=== PATIENT | male | born 1960 ===

== ENCOUNTER 2024-10-14 06:29 | Day surgery (SDC) | payer OTHER, SELFPAY ==
[2024-10-14] VITALS (20 sets, daily range): BP systolic 130–168; BP diastolic 65–100; BMI 39.0
[2024-10-14 07:13] LABS: Hematocrit 41.5 % (39.0-52.0); Hemoglobin 14.1 g/dL (13.0-18.0); Mean Corpuscular Hgb 29.4 pg (27.0-31.0); Mean Corpuscular Volume 86.5 fL (80.0-94.0); Mean Platelet Volume 9.7 fL (7.4-10.4); Platelet Count 300 10^3/uL (130-400); Red Cell Dist. Width 13.2 % (11.5-14.5); White Blood Cell Count 9.7 10^3/uL (4.8-10.8)
[2024-10-14 07:15] LABS: Glucose - Point of Care 242 mg/dl (70-99)
[2024-10-14] MEDS: LOW STRENGTH ASPIRIN 81 MG PO (07:21)
[2024-10-14 07:53] LABS: Blood Urea Nitrogen 23 mg/dl (9-20); Calcium 9.6 mg/dl (8.4-10.2); Carbon Dioxide 23 mmol/L (22-30); Chloride 107 mmol/L (98-107); Estimated Creatinine Clearance 123 ml/min; Glucose 236 mg/dl (70-99); Potassium 4.9 mmol/L (3.5-5.1); Sodium 138 mmol/L (135-145); eGFR > 60.00
--- NOTE | 2024-10-14 10:24 | ITS.CL.CATH ---
Risk Control Director - Catheterization
Cardiac Catheterization
Procedure Report:
LEFT HEART CATHETERIZATION
Date of Procedure: October 14, 2024
Referring: Dr. Andrey Caldera
PROCEDURES:
1. Left heart catheterization with coronary and single-plane left ventriculography
INDICATION: This is a 64-year-old gentleman with a history of poorly controlled diabetes and multivessel coronary artery disease with prior stenting of all the major epicardial coronary vessels including recurring in-stent restenosis in the
circumflex/OM with angiographic evidence of 2 layers of stent extending into OM 2. He is now scheduled for elective right total shoulder replacement and eventual right hip replacement. A recent stress study was notable for small-moderate
inferolateral partially reversible defect with an estimated ejection fraction of 47%. He is having no symptoms and blood pressures are reasonably well-controlled. He is now referred for coronary angiography.
ACCESS: Right radial artery, 6 [place] sheath
HEMODYNAMICS : (mmHg)
AO (s/d) : 164/89, 119
LV (s/d) : 166/22
LVEDP : 35
CORONARY FINDINGS
DOMINANCE: Right
LEFT MAIN: Normal
LEFT ANTERIOR DESCENDING: The LAD arises normally from the left main and runs in the anterior interventricular groove. The first diagonal branch arises from the proximal third of the LAD and has a long 50% mid stenosis. The LAD beyond the diagonal
branch is stented and the stent demonstrates mild diffuse in-stent restenosis to 20%. The remainder of the LAD has luminal irregularities.
CIRCUMFLEX: The circumflex is a moderate caliber nondominant vessel that arises normally from the left main. There appears to be overlapping stents from the mid circumflex extending into OM 2. OM1 is a medium caliber vessel and is widely patent.
OM 2 is a medium caliber vessel with recurring in-stent restenosis in tandem 60-70% stenosis and 60% stenosis. The remainder of OM 2 has minor irregularities.
RIGHT CORONARY ARTERY: The RCA is a dominant vessel and the proximal stent is widely patent. There is a 30-40% mid RCA stenosis and the remainder of the vessel has minor irregularities
VENTRICULOGRAPHY: Left ventriculography is performed in an READ projection. The digital single-plane left ventricular ejection fraction is visually estimated at 50% with mild anterolateral hypokinesis
SEDATION: 18 minutes of procedural sedation was utilized. An independent medical lab director was present to assist with and help manage the patient's level of consciousness and physiologic status.
RADIATION SUMMARY: Fluoro Time (min): 4.5, Dose (mGy): 526, DAP (Gy.cm2) : 37.0
Closure Device: TR band
CONCLUSIONS
1. Recurring in-stent restenosis within OM 2 stents
2. Patent LAD and RCA stents
3. Low normal LVEF
RECOMMENDATIONS
1. Patient is asymptomatic from his coronary artery disease. He angiographically appears to have 2 layers of stent already in OM 2 and I am not sure third layer of stent at this point would add much benefit and would clearly delay any surgical
intervention by at least 6 months. In the absence of any symptoms I am not sure delay in surgery is clinically indicated and would proceed minimizing the time in which clopidogrel is held. I would resume postoperatively as soon as possible.
Surgery should be performed in a monitored setting
Copy to: Dr. Andrey Caldera
== END 2024-10-14 12:45 | disposition home or self-care (01) ==
LOC: CATH 06:29
PROVIDERS: ATTENDING PHYSICIAN Internal Medicine Interventional Cardiology; FAMILY PHYSICIAN Family Medicine; REFERRING PHYSICIAN Internal Medicine Cardiovascular Disease
DX: T82.855D Stenosis of coronary artery stent, subsequent encounter (principal); Y83.1 Surgical operation with implant of artificial internal device as the cause of abnormal reaction of the patient, or of later complication, without mention of misadventure at the time of the procedure; I25.10 Atherosclerotic heart disease of native coronary artery without angina pectoris; Z95.5 Presence of coronary angioplasty implant and graft; I10 Essential (primary) hypertension; E78.5 Hyperlipidemia, unspecified; Z79.82 Long term (current) use of aspirin; Z79.899 Other long term (current) drug therapy; Z79.84 Long term (current) use of oral hypoglycemic drugs; Z79.85 Long-term (current) use of injectable non-insulin antidiabetic drugs; Z79.4 Long term (current) use of insulin
CPT/HCPCS: 99152; 80048; 82962; 85027; 93458; C1894; Q9967